=== PATIENT | male | born 1950 | race Caucasian/White ===

== ENCOUNTER → 2016-08-03 | Outpatient (CLI) | payer OTHER ==
[~2016-08-03] MED LIST: ADULT LOW DOSE81 MG PO; ATENOLOL 100MG100 M2 PO; AVAPRO300 MG PO; ESCITALOPRAM OX20 MG PO; MULTAQ400 MG PO; MULTIVITAMINS1 EAC7 PO; PRADAXA75 MG PO; SAVAYSA60 MG PO; TOPROL XL100 MG PO; ZESTRIL20 MG PO
[2016-08-03 08:32] LABS: HEMATOCRIT 46.1 % (42.0-52.0); HEMOGLOBIN 16.1 gm/dL (14.0-18.0); MCH 32.8 pg (26.0-34.0); MCHC 34.8 g/dL (28.0-37.0); MCV 94.1 fL (80.0-100.0); RBC 4.9 mil/uL (4.50-6.00); RDW 13.2 % (10.5-14.5); WBC 5.5 thou/uL (4.0-11.0)
[2016-08-03 08:44] LABS: ALBUMIN 3.7 g/dL (3.4-5.0); CREATININE 1.5 mg/dL (0.7-1.3); POTASSIUM 4.5 mmol/L (3.5-5.1); TOTAL BILIRUBIN 0.8 mg/dL (<0.1-1.0)
== END ==
LOC: LABMALL 07:43
PROVIDERS: Internal Medicine Cardiovascular Disease
DX: I25.10 Atherosclerotic heart disease of native coronary artery without angina pectoris (principal); I48.91 Unspecified atrial fibrillation

== ENCOUNTER 2016-08-09 06:30 | Observation (INO) | payer OTHER ==
[2016-08-09] VITALS (11 sets, daily range): BP systolic 81–102; BP diastolic 50–80
[~2016-08-09] VITALS: Ht 182.9 cm; Wt 94.2 kg
--- NOTE | ~2016-08-09 | 2DMMODE ---
[address] [address] 2 D/M-MODE ECHOCARDIOGRAM Name: ANCA URIAS Room #: 215-P ADM IN M.R.#: [id number] Admission: 08/09/16 Attend Phys: Yunior Tucker Discharge: Date of : 48 Date of Service: 08/09/16 1636 Report #: [id number] THIS REPORT FOR: //name// APPROVED REPORT Study performed: 08/09/2016 14:28:59 EXAM: Comprehensive 2D, Doppler, and color-flow Echocardiogram Patient Location: Bedside Room #: [facility] Status: stat Other Information Study Quality: Good Indications S^P Ablation Left Ventricle The left ventricle is normal size. There is normal left ventricular wall thickness. The left ventricular systolic function is normal. The left ventricular ejection fraction is within the normal range. LVEF is 55-60%. Right Ventricle The right ventricle is normal size. The right ventricular systolic function is normal. Atria Left atrium appears dilated. Small PFO is noted with color flow doppler. The right atrium size is normal. Aortic Valve The aortic valve is normal is mildly calcified Mitral Valve The mitral valve is normal in structure. Tricuspid Valve The tricuspid valve is normal in structure. Pulmonic Valve The pulmonary valve is normal in structure. [employer] [address] [place] [address] 2 D/M-MODE ECHOCARDIOGRAM Name: ANCA URIAS Room #: 215-P ADM IN M.R.#: [id number] Admission: 08/09/16 Attend Phys: Yunior Martinezchonnscout Discharge: Date of : 48 Date of Service: 08/09/161635 Report #: [id number] The aortic root is normal in size. IVC is normal in size and collapses >50% with inspiration. Pericardium Trace pericardial effusion. <Conclusion> Very limited study; no Doppler or color flow mapping The left ventricular systolic function is normal. LVEF is 55-60%. The aortic valve is normal is mildly calcified The mitral valve is normal in structure. <ELECTRONICALLY SIGNED> By: Bentley Montalvo MD, FACC 08/09/161635 35 35 Bentley Montalvo MD, FACC /INF
[2016-08-09] MEDS ORDERED: TOPROL XL25 MG PO (06:57)
[2016-08-09] MEDS ORDERED: ELIQUIS5 MG PO (06:58)
[2016-08-09 07:28] LABS: ABSOLUTE NEUTROPHILS 3.2 thou/uL (1.4-8.2); EOSINOPHILS 3.1 % (0.0-3.0); HEMATOCRIT 45.6 % (42.0-52.0); HEMOGLOBIN 15.8 gm/dL (14.0-18.0); MCH 32.6 pg (26.0-34.0); MCHC 34.6 g/dL (28.0-37.0); MCV 94.2 fL (80.0-100.0); MONOCYTES 11.7 % (1.0-8.0); PLATELET COUNT 190 thou/uL (150-400); POLYS 50.2 % (36.0-66.0); RBC 4.84 mil/uL (4.50-6.00); RDW 13.2 % (10.5-14.5); WBC 6.3 thou/uL (4.0-11.0)
[2016-08-09 07:36] LABS: MANUAL DIFF NO
[2016-08-09 07:39] LABS: CALCIUM 9.2 mg/dL (8.5-10.1); CREATININE 1.4 mg/dL (0.7-1.3); POTASSIUM 3.9 mmol/L (3.5-5.1)
[2016-08-09 07:44] LABS: ALBUMIN 3.7 g/dL (3.4-5.0); TOTAL BILIRUBIN 0.8 mg/dL (<0.1-1.0); TOTAL PROTEIN 7.2 g/dL (6.4-8.2)
[2016-08-09 07:45] LABS: APTT 27.2 Seconds (24.5-32.8); PROTIME 10.6 Seconds (9.3-11.4)
[2016-08-09 18:43] LABS: HEMATOCRIT 40.2 % (42.0-52.0); HEMOGLOBIN 13.9 gm/dL (14.0-18.0); MCH 32.7 pg (26.0-34.0); MCHC 34.5 g/dL (28.0-37.0); MCV 94.9 fL (80.0-100.0); RBC 4.24 mil/uL (4.50-6.00); RDW 13.3 % (10.5-14.5); WBC 9.2 thou/uL (4.0-11.0)
[2016-08-09 18:52] LABS: CALCIUM 8.2 mg/dL (8.5-10.1); CREATININE 1.4 mg/dL (0.7-1.3); POTASSIUM 4.4 mmol/L (3.5-5.1)
[2016-08-09 18:54] LABS: TOTAL BILIRUBIN 0.8 mg/dL (<0.1-1.0); TOTAL PROTEIN 5.7 g/dL (6.4-8.2)
[2016-08-10 04:10] VITALS: BP 108/75
[2016-08-10 08:00] VITALS: BP 108/77
[2016-08-10 10:36] VITALS: BP 108/75
[2016-08-10 11:27] VITALS: BP 108/75
== END 2016-08-10 11:20 | disposition home or self-care (01) ==
LOC: CATH 06:30 → 2N 13:27 → CATH 13:57 → 2N 08-10 11:20
PROVIDERS: Internal Medicine Cardiovascular Disease
DX: I48.0 Paroxysmal atrial fibrillation (principal); I25.10 Atherosclerotic heart disease of native coronary artery without angina pectoris; I77.819 Aortic ectasia, unspecified site; F32.9 Major depressive disorder, single episode, unspecified; I27.2 Other secondary pulmonary hypertension; Z72.89 Other problems related to lifestyle; Z87.891 Personal history of nicotine dependence
CPT/HCPCS: 62110; 62900; 70005

== ENCOUNTER → 2017-01-25 | Outpatient (CLI) | payer OTHER ==
[~2017-01-25] VITALS: Ht 182.9 cm; Wt 90.7 kg
[~2017-01-25] MED LIST changes: +ELIQUIS5 MG PO; +LISINOPRIL20 MG PO; +TOPROL XL25 MG PO
--- NOTE | ~2017-01-25 | EKG ---
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
--- NOTE | ~2017-01-25 | P ---
[facility] [place] [address] PROCEDURE REPORT Name: ANCA URIAS Room #: REG TD Ann#: [id number] Admission: 01/25/17 Attend Phys: Yunior Tucker MD Discharge: Date of : 48 Report #: [id number] THIS REPORT FOR: //name// CC: Robert Tucker DATE OF SERVICE: 01/25/2017 PREOPERATIVE DIAGNOSIS: Atrial fibrillation. POSTOPERATIVE DIAGNOSIS: Atrial fibrillation. HISTORY: The patient is a 66-year-old status post AFib ablation who has had clinical recurrence. He is here for a cardioversion. DESCRIPTION OF PROCEDURE: The patient underwent informed consent. The patient was sedated by the Anesthesiology service. Once sedated, he underwent a successful 200 joules synchronized cardioversion with hinduism of sinus rhythm. There were no complications. CONCLUSIONS: Successful direct current cardioversion with hinduism of sinus rhythm. By: [id number] Yunior Tucker MD /nt
[2017-01-25 10:16] VITALS: BP 108/69
[2017-01-25 10:24] LABS: ABSOLUTE NEUTROPHILS 3.7 thou/uL (1.4-8.2); BASOPHILS 0.4 % (0.0-2.0); EOSINOPHILS 2.6 % (0.0-3.0); HEMATOCRIT 48.9 % (42.0-52.0); HEMOGLOBIN 16.6 gm/dL (14.0-18.0); LYMPHOCYTES 24.1 % (24.0-44.0); MCH 33.2 pg (26.0-34.0); MCHC 33.9 g/dL (28.0-37.0); MCV 97.8 fL (80.0-100.0); MONOCYTES 10.7 % (1.0-8.0); PLATELET COUNT 188 thou/uL (150-400); POLYS 62.2 % (36.0-66.0); RBC 4.99 mil/uL (4.50-6.00); RDW 14.3 % (10.5-14.5); WBC 5.9 thou/uL (4.0-11.0)
[2017-01-25 10:25] LABS: MANUAL DIFF NO
[2017-01-25 10:37] LABS: CREATININE 1.3 mg/dL (0.7-1.3); POTASSIUM 4.7 mmol/L (3.5-5.1)
[2017-01-25 10:41] LABS: ALBUMIN 3.8 g/dL (3.4-5.0); APTT 29.6 Seconds (24.5-32.8); INR 1.1; PROTIME 11.2 Seconds (9.3-11.4); TOTAL BILIRUBIN 0.9 mg/dL (<0.1-1.0); TOTAL PROTEIN 6.9 g/dL (6.4-8.2)
== END | disposition home or self-care (01) ==
LOC: CATH 09:33
PROVIDERS: Internal Medicine Cardiovascular Disease
DX: I48.91 Unspecified atrial fibrillation (principal)
CPT/HCPCS: 62110; 62900

== ENCOUNTER → 2019-08-26 | Outpatient (CLI) | payer OTHER | LOC: SJCVC 11:02 → SJCVCIMAG 14:24 | PROVIDERS: ATTEND Internal Medicine | DX: I08.2 Rheumatic disorders of both aortic and tricuspid valves (principal); I11.9 Hypertensive heart disease without heart failure; I48.0 Paroxysmal atrial fibrillation; I25.10 Atherosclerotic heart disease of native coronary artery without angina pectoris; Z79.899 Other long term (current) drug therapy ==

== ENCOUNTER → 2020-08-23 | Outpatient (CLI) | payer OTHER | LOC: SJCVC 13:24 | PROVIDERS: ATTEND Internal Medicine Cardiovascular Disease | DX: R94.31 Abnormal electrocardiogram [ECG] [EKG] (principal); I48.19 Other persistent atrial fibrillation; I25.10 Atherosclerotic heart disease of native coronary artery without angina pectoris; I10 Essential (primary) hypertension; I27.20 Pulmonary hypertension, unspecified; F32.9 Major depressive disorder, single episode, unspecified; Z98.890 Other specified postprocedural states; Z79.899 Other long term (current) drug therapy; Z82.49 Family history of ischemic heart disease and other diseases of the circulatory system ==

== ENCOUNTER 2020-10-03 09:11 | Observation (INO) | payer OTHER ==
[~2020-10-03] VITALS: Ht 182.9 cm; Wt 93.4 kg
[2020-10-03 10:22] VITALS: BP 124/84
[2020-10-03 10:30] LABS: ABSOLUTE NEUTROPHILS 3.4 thou/uL (1.4-8.2); BASOPHILS 0.7 % (0.0-2.0); EOSINOPHILS 2.8 % (0.0-3.0); HEMATOCRIT 46.7 % (42.0-52.0); HEMOGLOBIN 15.8 gm/dL (14.0-18.0); LYMPHOCYTES 31.5 % (24.0-44.0); MCH 33.5 pg (26.0-34.0); MCHC 33.8 g/dL (28.0-37.0); MCV 99.1 fL (80.0-100.0); MONOCYTES 10.6 % (1.0-8.0); PLATELET COUNT 153 thou/uL (150-400); POLYS 54.4 % (36.0-66.0); RBC 4.71 mil/uL (4.50-6.00); RDW 13.8 % (10.5-14.5); WBC 6.2 thou/uL (4.0-11.0)
[2020-10-03 10:35] LABS: CALCIUM 8.9 mg/dL (8.5-10.1); CREATININE 1.4 mg/dL (0.7-1.3); POTASSIUM 4.4 mmol/L (3.5-5.1)
[2020-10-03 10:40] LABS: APTT 27.9 Seconds (24.5-32.8); INR 1.05; PROTIME 11.4 Seconds (10.5-12.1)
[2020-10-03 10:42] LABS: ALBUMIN 3.8 g/dL (3.4-5.0); TOTAL PROTEIN 6.9 g/dL (6.4-8.2)
[2020-10-03 18:22] VITALS: BP 85/62
--- NOTE | 2020-10-03 19:46 | NUR ---
PT ARRIVED FROM PACU APPROX 1814. R GROIN DRSNG WITH DRAINAGE, MARKED. NO HEMATOMA. PHYSICIAN NOTIFIED, BEDREST EXTENDED. BP LOW, ASYMPTOMATIC, LAST BP 100/57. SPOUSE AT BEDSIDE. ROOM AIR. ADMISSION COMPLETE. REPORT PASSED TO ASH ROD.
[2020-10-03 20:01] VITALS: BP 87/56
[2020-10-03 21:45] VITALS: BP 101/68
[2020-10-03 22:57] VITALS: BP 92/65
[2020-10-03 23:38] VITALS: BP 98/67
--- NOTE | 2020-10-04 03:05 | NUR ---
ASSUMED PT CARE AT 1900, PT IS AWAKE, ALERT AND ORIENTED, DENIES CP OR SOB, BP STILL SOFT IN THE 80S SYSTOLIC, CARDIOLOGY NOTIFIED, 250 ML BOLUS OF NS GIVEN, BP BETTER IN THE 90S SYSTOLIC WITH MAP>70, R. GROIN SITE DRESSING DRAINAGE NOTED, CHANGED AT 0000, DRESSING CDI, NO HEMATOMA, NO NEEDS AT THIS TIME, WILL CONTINUE TO MONITOR AND FOLLOW POC
[2020-10-04 03:38] VITALS: BP 98/57
[2020-10-04 05:24] LABS: CALCIUM 7.7 mg/dL (8.5-10.1); CREATININE 1.3 mg/dL (0.7-1.3); POTASSIUM 4.4 mmol/L (3.5-5.1)
[2020-10-04 05:27] LABS: HEMATOCRIT 39.7 % (42.0-52.0); MCHC 34.2 g/dL (28.0-37.0); MCV 99.6 fL (80.0-100.0); RBC 3.99 mil/uL (4.50-6.00); RDW 13.6 % (10.5-14.5); WBC 8.5 thou/uL (4.0-11.0)
[2020-10-04 05:42] LABS: HEMOGLOBIN 13.6 gm/dL (14.0-18.0)
[2020-10-04 08:00] VITALS: BP 124/77
[2020-10-04 10:54] VITALS: BP 124/77
--- NOTE | 2020-10-04 11:40 | NUR ---
ASSESSMENT CHARTED - MEDS PER KENDRA - ALYSSA DIET AND FLUIDS. NO CO'S OF PAIN OR NAUSEA. HOME THIS MORNING - INSTRUCTION RE HOME MEDS. CARE AND FOLLOW UP GIVEN TO PATIENT AND SPOUSE. NO CO'S AT TIME OF D/C. LEFT UNIT AMBULATORY HOME VIA PVT VEHICLE - NO CO'S AT TIME OF D/C.
--- NOTE | 2020-10-11 08:44 | P ---
[facility] [place] [address] PROCEDURE REPORT Name: ANCA URIAS Room #: 208-P [facility] Brit Ann#: [id number] Admission: 10/03/20 Attend Phys: Yunior Tucker MD Discharge: 10/04/20 Date of : 48 Report #: [id number] THIS REPORT FOR: cc: David Suazo James L. DO Couchonnal, Luis F. MD ~ DATE OF SERVICE: 10/03/2020 PREOPERATIVE DIAGNOSIS: Atrial fibrillation. POSTOPERATIVE DIAGNOSIS: Atrial fibrillation. PROCEDURE PERFORMED: 1. Atrial fibrillation ablation -- CPT code 74717. 2. 3D mapping -- CPT code 00927. 3. Intracardiac echo -- CPT code 46076. 4. Focal ablation -- CPT code 39874. 5. Second pathway ablation -- CPT code, 08117. The patient is a 70-year-old male with a history of prior AFib ablation, who has had clinical recurrence. He is here for repeat ablation. DESCRIPTION OF PROCEDURE: The patient was brought to the EP laboratory in fasting and sedated state, prepped and draped in standard fashion. I obtained access to the right femoral vein, placing an 8, 9, and 7-Trinidadian short sheath using modified Seldinger technique. Next, a decapolar catheter was placed in the coronary sinus and an ICE catheter was placed in the right atrium. At baseline, the patient was noted to be in atrial fibrillation. Using intracardiac ultrasound, I verified there were 2 left and 2 right pulmonary veins. The patient was then systemically heparinized and a transseptal was performed using an Agilis sheath, and a [place] needle. The transseptal was straightforward and then I placed a PentaRay into the left atrium. A voltage map was created showing that the pulmonary veins appeared to be re-isolated; however, there was extensive pulmonary fibrosis along the posterior wall. Therefore, I started by performing additional ablation around the left-sided veins along the ridge between the left superior and left atrium. I then decided to perform posterior wall isolation. I created a roof line from the left to the right-sided veins. I then performed an additional line connecting the right inferior pulmonary vein to the left inferior pulmonary vein. During ablation along the posterior wall, I was careful to use a lower duration lesions near the esophagus and the esophageal temperatures were monitored closely. Post-ablation, this was remapped and there appeared to be isolation of the posterior wall. Next, I decided to perform a mitral annular line and I performed ablation connecting the left inferior pulmonary vein to the mitral annulus. After ablation, this was remapped and showed that it appeared to be isolation of this region as well with no further signals noted on mapping. The [address] [address] PROCEDURE REPORT Name: ANCA URIAS Room #: 208-P [facility]ENT Ann#: [id number] Admission: 10/03/20 Attend Phys: Yunior Tucker MD Discharge: 10/04/20 Date of : 48 Report #: [id number] patient then underwent a 200 joule synchronized cardioversion with confucianist of sinus rhythm. An EP study was performed and AV block was noted at 380 milliseconds. Atrial ERP was noted at 200 milliseconds at [address] cycle length, atrial burst pacing was performed at 250-300 milliseconds and I could not induce any AFib, atrial flutter or SVT. As such, catheters and sheaths were pulled and hemostasis was obtained. There was no evidence of pericardial effusion using intracardiac ultrasound. CONCLUSION: 1. Successful atrial fibrillation ablation. 2. Successful posterior wall isolation. 3. Successful mitral annular line. <ELECTRONICALLY SIGNED> By: Yunior Tucker MD 10/11/20 0844 [id number] [id number] Yunior Tucker MD /nt
== END 2020-10-04 11:52 | disposition home or self-care (01) ==
LOC: CATH 09:11 → 2N 18:17
PROVIDERS: ADMIT Internal Medicine Cardiovascular Disease; ATTEND Internal Medicine Cardiovascular Disease
DX: I48.91 Unspecified atrial fibrillation (principal); Z20.822 Contact with and (suspected) exposure to COVID-19; I25.10 Atherosclerotic heart disease of native coronary artery without angina pectoris; I10 Essential (primary) hypertension; E78.5 Hyperlipidemia, unspecified; Z79.82 Long term (current) use of aspirin; Z79.899 Other long term (current) drug therapy
CPT/HCPCS: 62110; 62900; 70005

== ENCOUNTER → 2020-10-07 | Outpatient (CLI) | payer OTHER | LOC: SJCVCIMAG 08:16 | PROVIDERS: ATTEND Internal Medicine Cardiovascular Disease | DX: I08.3 Combined rheumatic disorders of mitral, aortic and tricuspid valves (principal); I25.10 Atherosclerotic heart disease of native coronary artery without angina pectoris; I10 Essential (primary) hypertension; K59.00 Constipation, unspecified; J30.2 Other seasonal allergic rhinitis; F32.9 Major depressive disorder, single episode, unspecified; R06.02 Shortness of breath; I48.19 Other persistent atrial fibrillation; R00.1 Bradycardia, unspecified; Z86.79 Personal history of other diseases of the circulatory system; Z98.890 Other specified postprocedural states; Z72.89 Other problems related to lifestyle ==

== ENCOUNTER → 2020-12-29 | Outpatient (CLI) | payer OTHER, MEDICARE | LOC: SJCVC 13:24 | PROVIDERS: ATTEND Internal Medicine Cardiovascular Disease | DX: I49.1 Atrial premature depolarization (principal); I48.0 Paroxysmal atrial fibrillation; I25.10 Atherosclerotic heart disease of native coronary artery without angina pectoris; F32.9 Major depressive disorder, single episode, unspecified; I10 Essential (primary) hypertension; Z79.899 Other long term (current) drug therapy; Z72.89 Other problems related to lifestyle ==

== ENCOUNTER → 2021-01-24 | Outpatient (CLI) | payer OTHER, MEDICARE ==
[2021-01-24 13:14] VITALS: BP 127/88
--- NOTE | 2021-01-25 13:02 | P ---
[facility] [place] [address] PROCEDURE REPORT Name: ANCA URIAS Room #: REG TD WallaceJack#: [id number] Admission: 01/24/21 Attend Phys: Yunior Tucker MD Discharge: Date of : 48 Report #: [id number] THIS REPORT FOR: cc: David Suazo James L. DO Couchonnal,Yunior Talbot MD ~ DATE OF SERVICE: 01/24/2021 PROCEDURE: Implantable loop recorder. PREOPERATIVE DIAGNOSIS: Atrial fibrillation. POSTOPERATIVE DIAGNOSIS: Atrial fibrillation. DESCRIPTION OF PROCEDURE: The patient underwent informed consent. He was prepped in a standard fashion. I injected lidocaine at the incision site. Incision was made. Device injected, tested and found to be functioning normally. A single layer of suture and a dressing was placed. There were no procedure related complications. The implanted device is a [employer] LINQ, serial number [id number]. <ELECTRONICALLY SIGNED> By: Yunior Tucker MD 01/25/21 1302 1633 0136 Yunior Tucker MD /nt
== END | disposition home or self-care (01) ==
LOC: CATH 08:30
PROVIDERS: ATTEND Internal Medicine Cardiovascular Disease
DX: I48.91 Unspecified atrial fibrillation (principal); Z79.01 Long term (current) use of anticoagulants; Z79.899 Other long term (current) drug therapy